=== PATIENT | female | born 1985 | race Caucasian/White ===

== ENCOUNTER 2016-06-25 23:22 | Emergency (ER) | payer OTHER | END 2016-06-26 01:52 | disposition home or self-care (01) | LOC: ER 23:22 | DX: G43.909 Migraine, unspecified, not intractable, without status migrainosus (principal); F31.9 Bipolar disorder, unspecified; J45.909 Unspecified asthma, uncomplicated; J44.9 Chronic obstructive pulmonary disease, unspecified; F17.210 Nicotine dependence, cigarettes, uncomplicated; Z88.8 Allergy status to other drugs, medicaments and biological substances | CPT/HCPCS: 36415; 96361; 96374; 96375; J1100; J1885; J2765 ==

== ENCOUNTER 2016-09-03 18:59 | Emergency (ER) | payer OTHER | END 2016-09-03 19:29 | disposition home or self-care (01) | LOC: ER 18:59 | DX: M72.2 Plantar fascial fibromatosis (principal); F31.9 Bipolar disorder, unspecified; F17.210 Nicotine dependence, cigarettes, uncomplicated; Z79.899 Other long term (current) drug therapy; Z88.8 Allergy status to other drugs, medicaments and biological substances ==